=== PATIENT | male | born 1985 | race Caucasian/White ===

== ENCOUNTER 2020-10-28 13:24 | Emergency (ER) | payer OTHER ==
[2020-10-28] MEDS ORDERED: BUPIVACAINE 0.5% PF 10 ML VIAL ONE (15:10)
[2020-10-28] MEDS ORDERED: LIDOCAINE 1% MPF 5 ML VIAL ONE (15:11)
[2020-10-28] MEDS ORDERED: TETANUS & DIPHTHERIA TOX,ADULT 0.5 ML VIAL ONE (15:11)
--- NOTE | 2020-10-28 15:57 | RAD REPORT ---
EXAM DESCRIPTION: RAD - Finger-Thumb Right - 10/28/2020 3:51 pm CLINICAL HISTORY: right index fingersoft tissue injury, catfish spine COMPARISON: No comparisons FINDINGS: No bone or joint abnormality identifiable. No radiopaque foreign body seen in the soft tissues.
--- NOTE | 2020-10-28 16:04 | ER ---
Nurse's Notes [facility] Name: Conner Gunderson Age: 35 yrs Sex: Male : 1985 Arrival Date: 10/28/2020 Time: 13:26 Bed Treatment Private MD: Cal Spann T Diagnosis: Puncture wound with foreign body of finger without damage to nail-right index Presentation: 10/28 13:40 Chief complaint: Patient states: about 2 hours ago i was fishing in the surf and i tw2 caught a cat fish and i have a adore of the cat fish in my RIGHT first finger. Coronavirus screen: At this time, the client does not indicate any symptoms associated with coronavirus-19. Ebola Screen: Patient denies travel to an Ebola-affected area in the 21 days before illness onset. Initial Sepsis Screen: Does the patient meet any 2 criteria? No. Patient's initial sepsis screen is negative. Does the patient have a suspected source of infection? No. Patient's initial sepsis screen is negative. Risk Assessment: Do you want to hurt yourself or someone else? Patient reports no desire to harm self or others. Onset of symptoms was October 28, 2020. 13:40 Method Of Arrival: Ambulatory tw2 13:40 Acuity: NATY 4 tw2 Triage Assessment: 13:40 General: Appears in no apparent distress. Behavior is calm, cooperative, appropriate tw2 for age. Pain: Complains of pain in dorsal aspect of distal phalanx of right index finger and dorsal aspect of middle phalanx of right index finger. Musculoskeletal: Range of motion: intact in all extremities. Injury Description: Puncture sustained to dorsal aspect of distal phalanx of right index finger and dorsal aspect of middle phalanx of right index finger was sustained 1-2 hours ago. Historical: - Allergies: 13:39 No Known Allergies; tw2 - Home Meds: 13:39 None [Active]; tw2 - PMHx: 13:39 None; tw2 - PSHx: 13:39 None; tw2 - Immunization history:: Last tetanus immunization: unknown. - Social history:: Smoking status: Patient denies any tobacco usage or history of. Screenin:50 Abuse screen: Denies threats or abuse. Nutritional screening: No deficits noted. tw2 Tuberculosis screening: No symptoms or risk factors identified. Fall Risk None identified. Assessment: 15:59 General: Appears in no apparent distress. Behavior is calm, cooperative. Pain: iw Complains of pain in dorsal aspect of middle phalanx of right index finger and dorsal aspect of distal phalanx of right index finger. Neuro: Level of Consciousness is awake, alert, obeys commands, Oriented to person, place, time, situation, Moves all extremities. Cardiovascular: Patient's skin is warm and dry. Derm: Skin. Musculoskeletal: Range of motion: intact in all extremities. Vital Signs: 13:40 BP 116 / 97; Pulse 87; Resp 17; Temp 97.9(TE); Pulse Ox 96% on R/A; tw2 ED Course: 13:26 Patient arrived in ED. ds1 13:30 Cal Spann MD is Private Physician. ds1 13:40 Herbert Porter PA is PHCP. cp 13:40 Herbert Solano MD is Attending Physician. cp 13:41 Triage completed. tw2 13:42 Arm band placed on. tw2 14:41 Bed in low position. Call light in reach. tw2 14:47 Shani Garcia, RN is Primary Nurse. iw 15:50 XRAY Finger-Thumb RIGHT In Process Unspecified. EDMS 16:00 No provider procedures requiring assistance completed. iw 16:10 Patient did not have IV access during this emergency room visit. 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 Exp: tr6 05/21/2022. Lot #: [id number]. } Route: IM; Site: left deltoid; 15:40 Follow up: Response: No adverse reaction iw 15:30 Drug: Lidocaine (1 %) 10 ml {Note: administered by GINGER Porter.} Volume: 20 ml; Route: tr6 Infiltration; 15:31 Drug: Marcaine (bupivacaine) (0.5 %) 10 ml {Note: administered by GINGER Porter.} Volume: 10 tr6 ml; Route: Infiltration; Outcome: 16:03 Discharge ordered by . cp 16:09 Discharged to home ambulatory. tr6 16:09 Condition: good 16:09 Discharge instructions given to patient, Instructed on discharge instructions, follow up and referral plans. medication usage, safety practices, wound care, Demonstrated understanding of instructions, follow-up care, medications, Prescriptions given X 1. 16:11 Patient left the ED. tr6 Signatures: Dispatcher [employer] EDMD BernalDanishai ds1 Shani Garcia, RN RN iw Herbert Porter PA PA cp Wise, Tara, RN RN tw2 Antonieta Owen RN RN tr6
--- NOTE | 2020-10-28 16:04 | EDPHYS ---
Physician Documentation [facility] Name: Conner Gunderson Age: 35 yrs Sex: Male : 1985 Arrival Date: 10/28/2020 Time: 13:26 Bed Treatment Private MD: Cal Spann T ED Physician Herbert Solano HPI: 10/28 14:00 This 35 yrs old Male presents to ER via Ambulatory with complaints of Finger cp Injury - Splinter. 14:00 The patient or guardian reports injury. The complaints affect the dorsal aspect of cp middle phalanx of right index finger and dorsal aspect of distal phalanx of right index finger. Context: while fishing, adore of fish became embedded in finger. Onset: The symptoms/episode began/occurred just prior to arrival. Associated signs and symptoms: Pertinent negatives: cyanosis distally, decreased sensation distally. Historical: - Allergies: 13:39 No Known Allergies; tw2 - Home Meds: 13:39 None [Active]; tw2 - PMHx: 13:39 None; tw2 - PSHx: 13:39 None; tw2 - Immunization history:: Last tetanus immunization: unknown. - Social history:: Smoking status: Patient denies any tobacco usage or history of. ROS: 14:05 Skin: Positive for puncture, of the dorsal aspect of distal phalanx of right index cp finger, foreign body. 14:05 Constitutional: Negative for body aches, chills, fever. cp 14:05 Respiratory: Negative for cough, shortness of breath, wheezing. 14:05 Abdomen/GI: Negative for abdominal pain. 14:05 MS/extremity: Positive for pain, of the right index finger, Negative for paresthesias. 14:05 All other systems are negative. Exam: 14:10 Constitutional: The patient appears in no acute distress, alert, awake, well developed, cp well nourished. 14:10 Musculoskeletal/extremity: Extremities: noted in the right index finger: There is no cp evidence of decreased ROM, Perfusion: the extremity is normally perfused throughout, Sensation intact. Tendon exam: specific tendon testing normal through active and passive range of motion 14:10 Skin: injury, that can be described as foreign body containing, with mild bleeding, protruding fin of fish, puncture(s), that are superficial, of the dorsal aspect of middle phalanx of right index finger. Vital Signs: 13:40 BP 116 / 97; Pulse 87; Resp 17; Temp 97.9(TE); Pulse Ox 96% on R/A; tw2 Procedures: 16:00 Foreign Body Removal: a fish bone, from the dorsal aspect of distal phalanx of right cp index finger, by using a hemostat, Dressinx4s were used to dress the wound, The patient tolerated the removal well, digital block performed with 6 ccs of mixture 1% lidocaine w/o epi and 0.5% marcaine. MDM: 14:42 Patient medically screened. cp 16:03 Data reviewed: vital signs, nurses notes, radiologic studies, plain films. cp 16:03 Test interpretation: by ED physician or midlevel provider: plain radiologic studies. cp Counseling: I had a detailed discussion with the patient and/or guardian regarding: the historical points, exam findings, and any diagnostic results supporting the discharge/admit diagnosis, radiology results, to return to the emergency department if symptoms worsen or persist or if there are any questions or concerns that arise at home. Special discussion: I discussed in detail with the patient the higher chance of wound infection based on his presenting history. 10/28 15:18 Order name: XRAY Finger-Thumb RIGHT; Complete Time: 16:01 10/28 16:01 Interpretation: Reviewed. 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 Exp: tr6 05/21/2022. Lot #: [id number]. } Route: IM; Site: left deltoid; 15:40 Follow up: Response: No adverse reaction iw 15:30 Drug: Lidocaine (1 %) 10 ml {Note: administered by GINGER Page.} Volume: 20 ml; Route: tr6 Infiltration; 15:31 Drug: Marcaine (bupivacaine) (0.5 %) 10 ml {Note: administered by GINGER Page.} Volume: 10 tr6 ml; Route: Infiltration; Disposition: 16:15 Chart complete. cp Disposition Summary: 10/28/20 16:03 Discharge Ordered Location: Home cp Problem: new cp Symptoms: have improved cp Condition: Stable cp Diagnosis - Puncture wound with foreign body of finger without damage to nail - right index cp Followup: cp - With: Private Physician - When: 2 - 3 days - Reason: Worsening of condition Discharge Instructions: - Discharge Summary Sheet cp - Puncture Wound cp - Hand or Foot Foreign Body, Adult cp Forms: - Medication Reconciliation Form cp - Thank You Letter cp - Antibiotic Education cp - Prescription Opioid Use cp Prescriptions: - Doxycycline Hyclate 100 mg Oral Tablet - take 1 tablet by ORAL route every 12 hours; 20 tablet; Refills: 0, Product cp Selection Permitted Addendum: 10/31/2020 06:45 Co-signature as Attending Physician, Herbert Solano MD I agree with the assessment and c [facility] plan of care. Signatures: Dispatcher [employer] Herbert Etienne MD MD cha Page, Corey, PA PA cp Kristy Kinney RN RN tw2 Antonieta Owen RN RN tr6 Shani Garcia RN iw
[2020-10-28 16:17] VITALS: BP 116/97; TEMP 97.9; O2SAT 96
== END 2020-10-28 16:11 | disposition home or self-care (01) ==
LOC: ER 13:24
PROC: 3E0T3BZ Introduction of Anesthetic Agent into Peripheral Nerves and Plexi, Percutaneous Approach (ICD-10-PCS; principal; 2020-10-28)
DX: S61.240A Puncture wound with foreign body of right index finger without damage to nail, initial encounter (principal); Z23 Encounter for immunization; W56.59XA Other contact with other fish, initial encounter; Y93.89 Activity, other specified
CPT/HCPCS: 90471; 90714; 99283